=== PATIENT | female | born 1965 | race Caucasian/White ===

== ENCOUNTER 2019-11-18 08:06 | Emergency (ER) | payer OTHER ==
[~2019-11-18] VITALS: Ht 149.9 cm; Wt 45.4 kg
[2019-11-18 08:34] LABS: URINE BILIRUBIN NEGATIVE (Negative); URINE BLOOD 1+ (Negative); URINE CLARITY CLEAR; URINE COLOR YELLOW; URINE GLUCOSE-RANDOM NEGATIVE (Negative); URINE KETONES NEGATIVE (Negative); URINE LEUKOCYTES-REFLEX 2+ (Negative); URINE NITRITE-REFLEX POSITIVE (Negative); URINE PROTEIN NEGATIVE (Negative); URINE SPECIFIC GRAVITY 1.015 (1.005-1.030); URINE UROBILINOGEN 0.2 E.U./dl (0.2-1.0)
[2019-11-18 08:40] LABS: SQUAMOUS >10 Many /LPF (0-3)
[2019-11-18 08:43] LABS: ABSOLUTE BASOPHILS 0.1 thou/uL (0.0-0.2); ABSOLUTE EOSINOPHILS 0.2 thou/uL (0.0-0.7); ABSOLUTE LYMPHOCYTES 1.6 thou/uL (0.8-5.3); ABSOLUTE MONOCYTES 0.6 thou/uL (0.0-1.2); ABSOLUTE NEUTROPHILS 1.9 thou/uL (1.6-8.1); BASOPHILS 1.2 %; EOSINOPHILS 5.7 %; HEMATOCRIT 39.2 % (37.0-47.0); HEMOGLOBIN 13.6 gm/dL (12.0-15.0); LYMPHOCYTES 35.7 %; MCH 36.7 pg (26.0-34.0); MCHC 34.7 g/dL (28.0-37.0); MONOCYTES 13.5 %; MPV 7.1 fl. (7.2-11.1); NUCLEATED RBCS 0 /100WBC; PLATELET COUNT* 246 thou/uL (150-400); POLYS 43.9 %; RDW-CV 14.1 % (10.5-14.5); WBC 4.4 thou/uL (4.0-11.0)
[2019-11-18 08:43] LABS: URINE WBC-REFLEX 6-15 Few /HPF (0-5)
[2019-11-18 08:44] LABS: BACTERIA-REFLEX >30 Many /HPF (None Seen); CASTS None Seen /LPF (None Seen); MUCUS None Seen strn/LPF (None Seen); WBC CLUMPS Few (None Seen)
[2019-11-18 08:46] LABS: CRYSTALS None Seen /LPF (None Seen)
[2019-11-18 08:54] LABS: CALCIUM 8.3 mg/dL (8.5-10.1); CREATININE 0.8 mg/dL (0.6-1.3); POTASSIUM 3.8 mmol/L (3.5-5.1)
[2019-11-18 08:59] LABS: ALBUMIN 3.8 g/dL (3.4-5.0); TOTAL BILIRUBIN 0.2 mg/dL (<0.1-1.0); TOTAL PROTEIN 8.1 g/dL (6.4-8.2)
[2019-11-18] MEDS ORDERED: KEFLEX500 M1 PO (09:04)
[2019-11-18 09:25] VITALS: BP 124/62
--- NOTE | 2019-11-19 11:02 | EKG ---
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
== END 2019-11-18 09:26 | disposition home or self-care (01) ==
LOC: M.ERS 08:06
PROVIDERS: Emergency Medicine Emergency Medical Services
DX: N39.0 Urinary tract infection, site not specified (principal); F17.210 Nicotine dependence, cigarettes, uncomplicated; Z96.642 Presence of left artificial hip joint; Z88.6 Allergy status to analgesic agent

== ENCOUNTER 2020-09-03 14:08 | Emergency (ER) | payer OTHER ==
[~2020-09-03] VITALS: Ht 149.9 cm; Wt 40.4 kg
[~2020-09-03 14:08] MED LIST: KEFLEX500 M1 PO
[2020-09-03 14:55] LABS: ABSOLUTE EOSINOPHILS 0.1 thou/uL (0.0-0.7); ABSOLUTE LYMPHOCYTES 0.7 thou/uL (0.8-5.3); ABSOLUTE MONOCYTES 0.3 thou/uL (0.0-1.2); ABSOLUTE NEUTROPHILS 4.5 thou/uL (1.6-8.1); BASOPHILS 0.8 %; EOSINOPHILS 1.5 %; HEMATOCRIT 40.2 % (37.0-47.0); HEMOGLOBIN 13.7 gm/dL (12.0-15.0); MCH 35.7 pg (26.0-34.0); MCHC 34.1 g/dL (28.0-37.0); MCV 104.7 fL (80.0-100.0); MONOCYTES 5.4 %; MPV 7.2 fl. (7.2-11.1); NUCLEATED RBCS 0 /100WBC; PLATELET COUNT* 209 thou/uL (150-400); POLYS 80.3 %; RBC 3.84 mil/uL (4.20-5.00); RDW-CV 13.3 % (10.5-14.5); WBC 5.7 thou/uL (4.0-11.0)
[2020-09-03 15:06] LABS: CREATININE 0.7 mg/dL (0.6-1.3); POTASSIUM 3.8 mmol/L (3.5-5.1)
[2020-09-03 15:10] LABS: APTT 27.4 Seconds (25.0-31.3); INR 0.9; PROTIME 10.1 Seconds (9.20-11.50)
[2020-09-03 15:11] LABS: ALBUMIN 3.6 g/dL (3.4-5.0); TOTAL BILIRUBIN 0.8 mg/dL (<0.1-1.0); TOTAL PROTEIN 7.4 g/dL (6.4-8.2)
[2020-09-03 15:13] LABS: URINE BILIRUBIN NEGATIVE (Negative); URINE BLOOD 1+ (Negative); URINE CLARITY CLEAR; URINE COLOR YELLOW; URINE GLUCOSE-RANDOM NEGATIVE (Negative); URINE KETONES NEGATIVE (Negative); URINE PROTEIN NEGATIVE (Negative); URINE UROBILINOGEN 0.2 E.U./dl (0.2-1.0)
[2020-09-03 15:14] LABS: URINE LEUKOCYTES-REFLEX 3+ (Negative); URINE NITRITE-REFLEX POSITIVE (Negative)
[2020-09-03 15:18] LABS: SQUAMOUS >10 Many /LPF (0-3)
[2020-09-03 15:19] LABS: RENAL EPITHELIAL CELLS 0-3 Few /LPF (None Seen); WBC CLUMPS Few (None Seen)
[2020-09-03 15:20] LABS: BACTERIA-REFLEX >30 Many /HPF (None Seen); URINE RBC 0-2 Rare /HPF (0-2)
[2020-09-03 15:21] LABS: CASTS None Seen /LPF (None Seen); CRYSTALS None Seen /LPF (None Seen); MUCUS None Seen strn/LPF (None Seen)
[2020-09-03] MEDS ORDERED: KEFLEX500 M1 PO (15:37)
[2020-09-03] MEDS ORDERED: ZANAFLEX4 MG PO (15:37)
[2020-09-03 16:43] VITALS: BP 144/63
--- NOTE | 2020-09-04 09:35 | EKG ---
[place] [address] ELECTROCARDIOGRAM REPORT Name: JANINA NGUYEN Room: [facility]#: [id number] Admission: 09/03/20 Attend Phys: Discharge: 09/03/20 Date of : 63 Date of Service: 09/03/20 1501 Report #: [id number] THIS REPORT FOR: //name// 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[facility] 1965 Requested By: Meggan Whitaker Order Number: [id number] MD: Abhishek Taylor Measurements Intervals [place] Rate: 57 P: 60 [place]: 144 QRS: 27 QRSD: 95 T: 55 QT: 430 QTc: 419 Interpretive Statements Sinus rhythm Compared to ECG 11/18/2019 08:25:53 No significant changes Electronically Signed On 09-04-2020 9:35:07 CDT by Abhishek Taylor [email or web address] <ELECTRONICALLY SIGNED> By: Abhishek Taylor MD, [facility] 09/04/20 0935 1501 1501 Abhishek Taylor MD, [facility] /EPI
== END 2020-09-03 16:45 | disposition short-term general hospital (02) ==
LOC: M.ERS 14:08
PROVIDERS: Nurse Practitioner Family
DX: S12.121A Other nondisplaced dens fracture, initial encounter for closed fracture (principal); S00.83XA Contusion of other part of head, initial encounter; N39.0 Urinary tract infection, site not specified; Z20.822 Contact with and (suspected) exposure to COVID-19; F17.210 Nicotine dependence, cigarettes, uncomplicated; Z96.642 Presence of left artificial hip joint; Z88.6 Allergy status to analgesic agent; Z88.5 Allergy status to narcotic agent; W18.39XA Other fall on same level, initial encounter; Y93.89 Activity, other specified; Y92.89 Other specified places as the place of occurrence of the external cause; Y99.8 Other external cause status

== ENCOUNTER 2021-01-16 09:15 | Emergency (ER) | payer OTHER ==
[~2021-01-16] VITALS: Ht 149.9 cm; Wt 49.9 kg
[~2021-01-16 09:15] MED LIST changes: +ZANAFLEX4 MG PO
[2021-01-16 10:52] VITALS: BP 134/85
== END 2021-01-16 10:53 | disposition home or self-care (01) ==
LOC: M.ERS 09:15
DX: J02.9 Acute pharyngitis, unspecified (principal); Z20.822 Contact with and (suspected) exposure to COVID-19; F17.210 Nicotine dependence, cigarettes, uncomplicated; Z88.6 Allergy status to analgesic agent; Z88.5 Allergy status to narcotic agent; Z96.642 Presence of left artificial hip joint